=== PATIENT | female | born 1945 | race Caucasian/White ===

== ENCOUNTER 2017-07-22 08:07 | Emergency (ER) | payer MEDICARE ==
[2013-08-20 08:39] VITALS: BMI 32.2
[~2017-07-22 08:07] MED LIST: ASPIRIN EC81 MG PO; CALCIUM 600+D T1 TA1 PO; FISH OIL 1,0001 CA1 PO; FOLATE0.4 MG PO; NIASPAN500 MG PO; PLAVIX75 MG PO; PRINIVIL20 MG PO; SELENIUM; ZETIA10 MG PO
[2017-07-22 12:51] LABS: BASOPHILS 0.2 % (0-2); EOSINOPHILS 0.3 % (0-7); HEMATOCRIT 39.8 % (36.0-48.0); HEMOGLOBIN 13.4 g/dL (12-16); IMMATURE GRANULOCYTES 0.3 % (0-5); MCH 31.3 pg (26.0-34.0); MCHC 33.7 g/dL (31.0-37.0); MEAN PLATELET VOLUME 9.2 fL (7.4-10.4); MONOCYTES 9.1 % (2-11); NEUTROPHILS 78.1 % (40-80); RBC 4.28 10x6/uL (4.00-5.40); RDW 12.4 % (11.5-14.5); WBC 14.6 10x3/uL (4.8-10.8)
[2017-07-22 12:53] LABS: PLATELET COUNT 245 10x3/uL (130-400)
[2017-07-22 13:05] LABS: ALBUMIN 3.5 g/dL (3.4-5.0); ALKALINE PHOSPHATASE 107 U/L (46-116); ALT (SGPT) 53 U/L (10-68); BILIRUBIN - TOTAL 0.67 mg/dL (0.2-1.3); CALC OSMOLALITY 266 mosm/kg (275-300); CARBON DIOXIDE 31.4 mmol/L (21.0-32.0); CHLORIDE - SERUM 98 mmol/L (98-107); CREATININE - SERUM 0.7 mg/dL (0.6-1.3); GLUCOSE 104 mg/dL (74-106); POTASSIUM - SERUM 4.4 mmol/L (3.5-5.1); SODIUM 134 mmol/L (136-145); UREA NITROGEN 10 mg/dL (7-18); eGFR NON AFRICAN AMERICAN 87 mL/min (90-120)
== END 2017-07-22 16:13 | disposition other institution (70) ==
LOC: D.ER 08:07
PROVIDERS: Emergency Medicine
DX: M50.20 Other cervical disc displacement, unspecified cervical region (principal); I10 Essential (primary) hypertension; Z86.73 Personal history of transient ischemic attack (TIA), and cerebral infarction without residual deficits

== ENCOUNTER 2018-03-24 08:59 | Emergency (ER) | payer MEDICARE ==
[~2018-03-24] VITALS: Ht 154.9 cm; Wt 75.9 kg
[2018-03-24 09:03] VITALS: Ht 154.9 cm; Wt 75.9 kg
[2018-03-24] MEDS ORDERED: NEURONTIN 300300 MG PO (09:10)
[2018-03-24] MEDS ORDERED: CRESTOR5 MG PO (09:12)
[2018-03-24] MEDS ORDERED: MAGNESIUM OXID250 MG PO (09:12)
[2018-03-24 09:31] LABS: BASOPHILS 0.5 % (0-2); EOSINOPHILS 1.9 % (0-7); HEMATOCRIT 44.4 % (36.0-48.0); HEMOGLOBIN 15.1 g/dL (12-16); IMMATURE GRANULOCYTES 0.3 % (0-5); LYMPHOCYTES 17.7 % (15-50); MCH 31.3 pg (26.0-34.0); MCV 91.9 fL (80.0-100.0); MEAN PLATELET VOLUME 9.2 fL (7.4-10.4); MONOCYTES 6.6 % (2-11); RBC 4.83 10x6/uL (4.00-5.40); RDW 13.2 % (11.5-14.5); WBC 13.7 10x3/uL (4.8-10.8)
[2018-03-24 09:39] LABS: PLATELET COUNT 318 10x3/uL (130-400)
[2018-03-24 09:47] LABS: ALBUMIN 3.4 g/dL (3.4-5.0); ANION GAP 12.9 mmol/L (8-16); BILIRUBIN - TOTAL 0.55 mg/dL (0.2-1.3); CALCIUM 9.3 mg/dL (8.5-10.1); CARBON DIOXIDE 26.8 mmol/L (21.0-32.0); CREATININE - SERUM 0.8 mg/dL (0.6-1.3); POTASSIUM - SERUM 3.7 mmol/L (3.5-5.1); PROTEIN - SERUM 7.4 g/dL (6.4-8.2)
[2018-03-24] MEDS ORDERED: VANCOCIN HCL250 MG PO (10:13)
[2018-03-24 10:45] VITALS: BP 155/70
[2018-03-24 10:45] LABS: APPEARANCE CLEAR (CLEAR); BILIRUBIN NEGATIVE (NEGATIVE); COLOR YELLOW (YELLOW); GLUCOSE NEGATIVE (NEGATIVE); KETONE NEGATIVE (NEGATIVE); NITRITE NEGATIVE (NEGATIVE); PROTEIN NEGATIVE (NEGATIVE); SPECIFIC GRAVITY 1.005 (1.005-1.020); UROBILINOGEN NORMAL (NORMAL)
[2018-03-25] MEDS ORDERED: VANCOCIN HCL250 MG PO (09:00)
[2018-03-29 03:10] LABS: OVA + PARASITE EXAM Final report (())
== END 2018-03-24 10:45 | disposition home or self-care (01) ==
LOC: D.ER 08:59
PROVIDERS: Emergency Medicine
DX: A04.72 Enterocolitis due to Clostridium difficile, not specified as recurrent (principal); R10.9 Unspecified abdominal pain; Z86.73 Personal history of transient ischemic attack (TIA), and cerebral infarction without residual deficits; E11.9 Type 2 diabetes mellitus without complications; I10 Essential (primary) hypertension

== ENCOUNTER 2018-03-25 08:41 | Emergency (ER) | payer MEDICARE ==
[~2018-03-25] VITALS: Ht 154.9 cm; Wt 75.7 kg
[~2018-03-25 08:41] MED LIST changes: +CRESTOR5 MG PO; +MAGNESIUM OXID250 MG PO; +NEURONTIN 300300 MG PO; +VANCOCIN HCL250 MG PO
[2018-03-25 08:43] VITALS: Ht 154.9 cm; Wt 75.7 kg
[2018-03-25] MEDS ORDERED: VANCOCIN HCL250 MG PO (09:00)
[2018-03-25 09:07] VITALS: BP 132/88
== END 2018-03-25 09:07 | disposition home or self-care (01) ==
LOC: D.ER 08:41
DX: A04.72 Enterocolitis due to Clostridium difficile, not specified as recurrent (principal)

== ENCOUNTER 2018-07-07 04:46 | Emergency (ER) | payer MEDICARE ==
[~2018-07-07] VITALS: Ht 154.9 cm; Wt 76.4 kg
[2018-07-07 04:55] VITALS: Ht 154.9 cm; Wt 76.4 kg
[2018-07-07] MEDS ORDERED: HYDROCORTISONE30 G9 TOPICAL (05:54)
[2018-07-07 05:58] VITALS: BP 134/85
== END 2018-07-07 05:58 | disposition home or self-care (01) ==
LOC: D.ER 04:46
DX: L30.1 Dyshidrosis [pompholyx] (principal)

== ENCOUNTER 2018-07-19 12:05 | Emergency (ER) | payer MEDICARE ==
[~2018-07-19] VITALS: Ht 154.9 cm; Wt 77.3 kg
[~2018-07-19 12:05] MED LIST changes: +HYDROCORTISONE30 G9 TOPICAL
[2018-07-19 12:11] VITALS: Ht 154.9 cm; Wt 77.3 kg
[2018-07-19] MEDS ORDERED: SILVADENE20 GM TP (13:02)
[2018-07-19] MEDS ORDERED: HYDROCODON-ACET15 ML PO (13:02)
[2018-07-19 14:49] VITALS: BP 160/71
== END 2018-07-19 14:16 | disposition home or self-care (01) ==
LOC: D.ER 12:05
DX: T22.211A Burn of second degree of right forearm, initial encounter (principal); T24.112A Burn of first degree of left thigh, initial encounter; T24.111A Burn of first degree of right thigh, initial encounter; X12.XXXA Contact with other hot fluids, initial encounter; Y93.89 Activity, other specified; Y92.019 Unspecified place in single-family (private) house as the place of occurrence of the external cause